=== PATIENT | male | born 2000 | race Caucasian/White ===

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

== ENCOUNTER → 2022-06-14 | Outpatient (REF) | payer BC, OTHER | LOC: M LAB REF 16:10 | PROVIDERS: ATTEND Internal Medicine | DX: Z72.51 High risk heterosexual behavior (principal) ==

== ENCOUNTER → 2022-06-21 | Outpatient (REF) | payer BC, OTHER ==
[2022-06-24 15:39] LABS: GC DNA AMPLIFICATION NEGATIVE (NEGATIVE)
[2022-06-24 15:40] LABS: GC DNA AMPLIFICATION NEGATIVE (NEGATIVE)
[2022-06-25 11:42] LABS: GC DNA AMPLIFICATION NEGATIVE (NEGATIVE)
== END ==
LOC: M LAB REF 16:00
PROVIDERS: ATTEND Internal Medicine
DX: Z72.52 High risk homosexual behavior (principal); Z72.51 High risk heterosexual behavior

== ENCOUNTER → 2023-08-31 | Outpatient (CLI) | payer BC | LOC: M EKG 08:06 | PROVIDERS: ATTEND Internal Medicine | DX: R00.2 Palpitations (principal) ==

== ENCOUNTER → 2023-12-29 | Outpatient (CLI) | payer BC | LOC: M SLEEP HO 11:48 | PROVIDERS: ATTEND Nurse Practitioner Family | DX: R40.0 Somnolence (principal) ==

== ENCOUNTER → 2024-05-05 | Outpatient (CLI) | payer BC | LOC: M SLEEP 20:00 | PROVIDERS: ATTEND Nurse Practitioner Family | DX: G47.33 Obstructive sleep apnea (adult) (pediatric) (principal) ==

== ENCOUNTER → 2024-08-08 | Outpatient (REF) | payer BC ==
[2024-08-08 21:13] LABS: GC DNA AMPLIFICATION NEGATIVE (NEGATIVE)
== END ==
LOC: M LAB REF 19:01
PROVIDERS: ATTEND Physician Assistant
DX: Z11.3 Encounter for screening for infections with a predominantly sexual mode of transmission (principal)